=== PATIENT | male | born 1980 | race Caucasian/White ===

== ENCOUNTER 2016-09-10 13:59 | Emergency (ER) ==
[2016-09-10 17:06] LABS: MANUAL DIFF NEEDED? NO; URINE CULTURE NEEDED? NO; URINE MICRO REVIEW NEEDED? NO; URINE SOURCE CLEAN CATCH
[2016-09-10 17:12] LABS: BASO% 0.9 % (0.0-0.8); EOS# 1.55 X1000 (0.0-0.7); EOS% 16.1 % (0.0-10.0); HEMATOCRIT 45.3 % (42.0-52.0); HEMOGLOBIN 15.9 g/dL (14.0-18.0); LYMPH# 3.21 X1000 (1.2-3.4); LYMPH% 33.3 % (20.5-51.1); MCH 28.9 PG (27-31); MCHC 35.1 g/dL (33-37); MCV 82.4 FL (81-99); MONO# 0.85 X1000 (0.11-0.59); MONO% 8.8 % (1.7-9.3); MPV 10.3 FL (7.4-10.4); NEUT% 40.9 % (42.2-75.2); PLT 250 X1000 (130-400)
[2016-09-10 17:13] LABS: BILIRUBIN URINE NEGATIVE (NEGATIVE); BLOOD URINE NEGATIVE (NEGATIVE); COLOR YELLOW; GLUCOSE URINE NEGATIVE (NEGATIVE); LEUKOCYTES URINE NEGATIVE (NEGATIVE); NITRITE URINE NEGATIVE (NEGATIVE); PH URINE 6.5; PROTEIN URINE NEGATIVE (NEGATIVE); SP GRAVITY URINE 1.012; TURBIDITY URINE CLEAR (CLEAR); UROBILINOGEN URINE NORMAL (NORMAL)
[2016-09-10 17:14] LABS: UR EPITHELIAL CELLS <10 /HPF (<10); URINE BACTERIA 1+ /HPF; URINE RBC <10 /HPF (<10); URINE WBC <10 /HPF (<10)
[2016-09-10 17:37] LABS: AGAP 11; ALBUMIN 4.6 g/dL (3.5-5.0); ALKALINE PHOSPHATASE 75 U/L (32-122); BUN 9 mg/dL (8-22); CALCIUM 9.5 mg/dL (8.8-10.2); CHLORIDE 99 mmol/L (98-107); COSMO 275; GOT 15 U/L (10-34); GPT 15 U/L (10-44); LIPASE 23 U/L (13-60); SODIUM 139 mmol/L (136-145); TCO2 29 mmol/L (25-35); TOTAL BILIRUBIN 0.56 mg/dL (0.20-1.00); TOTAL PROTEIN 7.2 g/dL (6.3-8.3)
[2016-09-10 18:11] LABS: FREE T4 1.57 ng/dL (0.93-1.70)
--- NOTE | 2016-09-10 19:05 | PROVIDER DOCUMENTATION ---
HPI-Abdominal Pain/GI Problem - General Chief Complaint: Epigastric Pain Stated Complaint: ABD PAIN,NAUSEA Time Seen by Provider: 09/10/16 16:40 Source: patient Allergies/Adverse Reactions: Patient Allergies Allergy/AdvReac Type Severity Reaction Status Date / Time No Known Allergies Allergy Verified 06/02/14 17:37 Home Medications: Buprenorphine HCl/Naloxone HCl [Suboxone 8 mg/2 mg Sl Film] 1 each SL BID Dextroamphetamine/Amphetamine [Adderall 20 mg Tablet] 20 mg PO DAILY 09/10/16 - History of Present Illness-ABD Nature of Presenting Problems: This pt presents today c complaints of abdominal pains for the past 2 years. He states that he has been seen by his PCP, a general surgeon and a construction and maintenance inspector for this complaint. He states that he actually has an appointment tomorrow c his GI physician for a HIDA scan but decided to come in tonight and have his "labs rechecked." Abdominal Pain Onset Location: reports: generalized abdomen Quality of Pain: reports: cramping Severity in ED: reports: moderate Onset/Duration: reports: other (see hpi) Timing: reports: still present Associated Symptoms: reports: fatigue Dark Stools Present?: reports: none noticed Rectal Bleeding: reports: none Rectal Pain: reports: none Emesis Description: reports: none Bruising or Bleeding Gums?: No Similar Symptoms Previously?: No Recently seen or treated by another doctor?: No Review of Systems - Adult - REVIEW OF SYSTEMS - ADULT Constitutional: reports: no symptoms reported. denies: chills, fever Eyes: reports: no symptoms reported. denies: discharge, dry eyes Ears, Nose, Mouth & Throat: reports: no symptoms reported. denies: ear discharge, ear pain Cardiovascular: reports: no symptoms reported. denies: chest pain, edema Respiratory: reports: no symptoms reported. denies: chronic cough, cough Gastrointestinal: reports: abdominal pain, nausea. denies: diarrhea, difficulty swallowing, frequent heartburn, rectal bleeding Genitourinary: reports: no symptoms reported. denies: dysuria, discharge Musculoskeletal: reports: no symptoms reported. denies: bone pain, back pain Integumentary: reports: no symptoms reported. denies: hives, hair loss Neurological: reports: no symptoms reported. denies: ataxia, dizziness/vertigo Psychiatric: reports: no symptoms reported. denies: anxiety, anti-depressant use Endocrine: reports: no symptoms reported Hematologic/Lymphatic: reports: no symptoms reported Allergic/Immunologic: reports: no symptoms reported All Other Systems: Reviewed and Negative Past History - Adult - PAST MEDICAL HISTORY-ADULT Review of Records: reports: Old Records Reviewed, Nursing Assessment Review, Medications Reviewed, Social history reviewed & non-contributory. Major Childhood Illnesses: reports: denies history Cardiovascular: reports: denies history Respiratory: reports: denies history Gastrointestinal: reports: denies history Obstetrical/Gynecological: reports: denies history Genitourinary: reports: denies history Musculoskeletal: reports: denies history Neurological: reports: denies history Endocrine/Immune: reports: denies history Other Conditions: reports: denies history - IMMUNIZATION STATUS Childhood Immunizations: See Nurse Assessment Flu Vaccine: See Nurse Assessment - FAMILY HISTORY Family History: reviewed, not pertinent Physical Exam-General - PHYSICAL EXAM-ADULT Initial Vital Signs Reviewed: Yes - CONSTITUTIONAL General Appearance: appears well, alert, no apparent distress. negative: lethargic, slow to respond - EYES Eyes: PERRL/EOMI, pink conjunctivae - HEAD, EARS, NOSE, MOUTH & THROAT HENMT: normocephalic/atraumatic, moist mucous membranes, normal ENT inspection - NECK Neck: non-tender, full range of motion, normal inspection. negative: limited range of motion, lymphadenopathy, meningismus - RESPIRATORY Respiratory: chest non-tender, lungs clear, normal breath sounds, no pleuratic chest pain, no respiratory distress, no accessory muscle use. negative: respiratory distress, decreased breath sounds, accessory muscle use - CARDIOVASCULAR Cardiovascular: normal peripheral pulses, regular rate, rhythm, no edema. negative: bradycardia, tachycardia - GASTROINTESTINAL (ABDOMEN) Abdominal Exam: normal bowel sounds, no organomegaly, no pulsatile mass, tenderness. negative: abdominal bruit, abnormal bowel sounds, distended, guarding, rigid, rebound, hepatomegaly, spleenomegaly - LYMPHATIC Lymphatic: no adenopathy - MUSCULOSKELETAL Back Exam: normal inspection, no CVA tenderness, no vertebral tenderness Extremity: normal range of motion, non-tender, normal gait - SKIN Integumentary: normal color, normal turgor, warm/dry - NEUROLOGIC Neurologic: grossly normal, no motor/sensory deficits - PSYCHIATRIC Psych/Mental Status: normal mood/affect, normal thought content, normal thought process, oriented x 3 Progress - PLAN OF CARE/RESULTS Progress/Plan/Lab Results: Laboratory Tests 09/10/16 09/10/16 09/10/16 16:56 16:56 16:56 WBC 9.64 RBC 5.50 Hgb 15.9 Hct 45.3 MCV 82.4 MCH 28.9 MCHC 35.1 RDW Std Deviation 14.0 Plt Count 250 MPV 10.3 Immature Gran % (Auto) 0.0 Neut % (Auto) 40.9 L Lymph % (Auto) 33.3 Trigg % (Auto) 8.8 Eos % (Auto) 16.1 H Baso % (Auto) 0.9 H Immature Gran # (Auto) 0.00 Neut # (Auto) 3.94 Lymph # (Auto) 3.21 Trigg # (Auto) 0.85 H Eos # (Auto) 1.55 H Baso # (Auto) 0.09 Sodium 139 Potassium 4.0 Chloride 99 Carbon Dioxide 29 Anion Gap 11 BUN 9 Creatinine 0.9 Estimated GFR/1.73 m2 > 60 BUN/Creatinine Ratio 10 Glucose 82 Calculated Osmolality 275 Calcium 9.5 Magnesium Total Bilirubin 0.56 AST 15 ALT 15 Alkaline Phosphatase 75 Total Protein 7.2 Albumin 4.6 Globulin 2.6 Albumin/Globulin Ratio 1.8 Lipase 23 TSH Free T4 Urine Source CLEAN CATCH Urine Color YELLOW Urine Turbidity CLEAR Urine pH 6.5 Ur Specific Mercer 1.012 Urine Protein NEGATIVE Ur Glucose (Stick) NEGATIVE Ur Ketones (Stick) NEGATIVE Urine Blood NEGATIVE Urine Nitrite NEGATIVE Urine Bilirubin NEGATIVE Urobilinogen Dipstick NORMAL Urine Leukocytes NEGATIVE Urine WBC (Auto) <10 Urine RBC (Auto) <10 U Epithel Cells (Auto) <10 Urine Bacteria (Auto) 1+ 09/10/16 09/10/16 16:56 16:56 WBC RBC Hgb Hct MCV MCH MCHC RDW Std Deviation Plt Count MPV Immature Gran % (Auto) Neut % (Auto) Lymph % (Auto) Trigg % (Auto) Eos % (Auto) Baso % (Auto) Immature Gran # (Auto) Neut # (Auto) Lymph # (Auto) Trigg # (Auto) Eos # (Auto) Baso # (Auto) Sodium Potassium Chloride Carbon Dioxide Anion Gap BUN Creatinine Estimated GFR/1.73 m2 BUN/Creatinine Ratio Glucose Calculated Osmolality Calcium Magnesium 2.2 Total Bilirubin AST ALT Alkaline Phosphatase Total Protein Albumin Globulin Albumin/Globulin Ratio Lipase TSH 1.14 Free T4 1.57 Urine Source Urine Color Urine Turbidity Urine pH Ur Specific Mercer Urine Protein Ur Glucose (Stick) Ur Ketones (Stick) Urine Blood Urine Nitrite Urine Bilirubin Urobilinogen Dipstick Urine Leukocytes Urine WBC (Auto) Urine RBC (Auto) U Epithel Cells (Auto) Urine Bacteria (Auto) Orders Category Date Time Status Saline Loc NOW Care 09/10/16 16:41 Active CBC WITH ELECTRONIC DIFF [HEME] Stat Lab 09/10/16 16:56 Completed COMPREHENSIVE METABOLIC PANEL [CHEM] Stat Lab 09/10/16 16:56 Completed FREE T4 Stat Lab 09/10/16 16:56 Completed LIPASE [CHEM] Stat Lab 09/10/16 16:56 Completed MAGNESIUM [CHEM] Stat Lab 09/10/16 16:56 Completed TSH Stat Lab 09/10/16 16:56 Completed URINALYSIS W/POSS RFLX CULT [URINALYSIS] Stat Lab 09/10/16 16:56 Completed Vital Signs Pulse Resp BP Pulse Ox 09/10/16 17:33 101 H 19 137/75 100 09/10/16 14:11 77 16 134/76 100 No Known Allergies Allergy (Verified 06/02/14 17:37) Buprenorphine HCl/Naloxone HCl [Suboxone 8 mg/2 mg Sl Film] 1 each SL BID Dextroamphetamine/Amphetamine [Adderall 20 mg Tablet] 20 mg PO DAILY 09/10/16 I&O 09/09/16 09/10/16 09/11/16 06:59 06:59 06:59 Output Total 50 Balance -50 Laboratory 09/10/16 09/10/16 09/10/16 16:56 16:56 16:56 WBC RBC Hgb Hct MCV MCH MCHC RDW Std Deviation Plt Count MPV Immature Gran % (Auto) Neut % (Auto) Lymph % (Auto) Trigg % (Auto) Eos % (Auto) Baso % (Auto) Immature Gran # (Auto) Neut # (Auto) Lymph # (Auto) Trigg # (Auto) Eos # (Auto) Baso # (Auto) Sodium Potassium Chloride Carbon Dioxide Anion Gap BUN Creatinine Estimated GFR/1.73 m2 BUN/Creatinine Ratio Glucose Calculated Osmolality Calcium Magnesium 2.2 Total Bilirubin AST ALT Alkaline Phosphatase Total Protein Albumin Globulin Albumin/Globulin Ratio Lipase TSH 1.14 Free T4 1.57 Urine Source CLEAN CATCH Urine Color YELLOW Urine Turbidity CLEAR Urine pH 6.5 Ur Specific Mercer 1.012 Urine Protein NEGATIVE Ur Glucose (Stick) NEGATIVE Ur Ketones (Stick) NEGATIVE Urine Blood NEGATIVE Urine Nitrite NEGATIVE Urine Bilirubin NEGATIVE Urobilinogen Dipstick NORMAL Urine Leukocytes NEGATIVE Urine WBC (Auto) <10 Urine RBC (Auto) <10 U Epithel Cells (Auto) <10 Urine Bacteria (Auto) 1+ 09/10/16 09/10/16 16:56 16:56 WBC 9.64 RBC 5.50 Hgb 15.9 Hct 45.3 MCV 82.4 MCH 28.9 MCHC 35.1 RDW Std Deviation 14.0 Plt Count 250 MPV 10.3 Immature Gran % (Auto) 0.0 Neut % (Auto) 40.9 L Lymph % (Auto) 33.3 Trigg % (Auto) 8.8 Eos % (Auto) 16.1 H Baso % (Auto) 0.9 H Immature Gran # (Auto) 0.00 Neut # (Auto) 3.94 Lymph # (Auto) 3.21 Trigg # (Auto) 0.85 H Eos # (Auto) 1.55 H Baso # (Auto) 0.09 Sodium 139 Potassium 4.0 Chloride 99 Carbon Dioxide 29 Anion Gap 11 BUN 9 Creatinine 0.9 Estimated GFR/1.73 m2 > 60 BUN/Creatinine Ratio 10 Glucose 82 Calculated Osmolality 275 Calcium 9.5 Magnesium Total Bilirubin 0.56 AST 15 ALT 15 Alkaline Phosphatase 75 Total Protein 7.2 Albumin 4.6 Globulin 2.6 Albumin/Globulin Ratio 1.8 Lipase 23 TSH Free T4 Urine Source Urine Color Urine Turbidity Urine pH Ur Specific Mercer Urine Protein Ur Glucose (Stick) Ur Ketones (Stick) Urine Blood Urine Nitrite Urine Bilirubin Urobilinogen Dipstick Urine Leukocytes Urine WBC (Auto) Urine RBC (Auto) U Epithel Cells (Auto) Urine Bacteria (Auto) Discussed lab workup. Will have pt f/u tomorrow as scheduled. Departure - Departure Time of Disposition Order: 19:14 DIAGNOSIS: Chronic abdominal pain Disposition: HOME 01 Certified Medical Emergency: Emergent Condition: Good Additional Instructions: Follow up tomorrow as scheduled. ED Follow Up Instructions: You have been treated by a care provider in the Emergency Department. These instructions are being provided to you so you can have an understanding of how to care for yourself upon discharge. Upon discharge from the Emergency Department, you are responsible for making arrangements for follow-up care by a physician of your choice. Take all prescribed medications as directed. Return to the Emergency Department immediately for any new or worsening symptoms. You may call the Physician Referral phone number at [phone] to obtain a list of Physicians who are taking new patients. Attestation - Physician/ Mid-level Attestation Patient care was provided by Mid-level provider ([employer]ER OPERATOR/PA):: Yes Mid-level provider:: Bernabe Lewis Mid-level documentation review:: The Mid-level provider documentation, treatment plan and medical decision making was reviewed by the physician who agrees with all treatment and medical decision making by the MLP.
[2016-09-10 19:25] VITALS: BP 130/76
== END 2016-09-10 19:33 | disposition home or self-care (01) ==
LOC: ED 13:59
DX: G89.29 Other chronic pain (principal); R10.13 Epigastric pain; R10.84 Generalized abdominal pain; R11.0 Nausea; R53.83 Other fatigue; Z79.899 Other long term (current) drug therapy
CPT/HCPCS: 80053; 81001; 83690; 83735; 84439; 84443; 85025; 99283